=== PATIENT | male | born 1975 | race Caucasian/White ===

== ENCOUNTER 2024-11-24 00:21 | Emergency (ER) | payer BC ==
[2024-11-24 01:01] LABS: Specific Gravity 1.024 (1.005-1.030); Urine Bilirubin NEGATIVE (Negative); Urine Blood Negative (Negative); Urine Clarity Clear (Clear); Urine Color Light-Yellow (Yellow); Urine Glucose NEGATIVE (Negative); Urine Ketones NEGATIVE (Negative); Urine Microscopic Reflex YN NO UMIC; Urine Nitrite NEGATIVE (Negative); Urine Protein NEGATIVE (Negative); Urine Urobilinogen Normal (Normal); Urine pH 6.5 (5.0-7.0)
[2024-11-24 01:44] LABS: Absolute Eosinophils 0.1 K/uL (0-0.5); Absolute Lymphocytes (CBC) 2.4 K/uL (0.7-4.9); Absolute Monocytes 0.5 K/uL (0.1-1.3); Absolute Neutrophil 3.7 K/uL (1.8-8.0); Basophils % 0.6 % (0-1.3); Eosinophils % 2.1 % (0-4.4); Hematocrit 46.3 % (39.6-49.0); Hemoglobin 16.4 g/dL (13.6-17.9); MCH 30.4 pg (27.0-35.0); MCHC 35.3 g/dL (32.0-36.0); MCV 86.1 fL (80-100); MPV 9.4 fL (7.6-11.3); Monocytes % 7.4 % (3.3-12.3); Neutrophils % 54.9 % (41.7-73.7); Nucleated Red Blood Cells % 0.3 % (0-0); Platelets 166 thou/uL (152-406); RBC Red Blood Cell Count 5.37 M/uL (4.33-5.43); Red Cell Distribution Width 14.6 % (12.1-15.2)
[2024-11-24 01:57] LABS: Albumin 3.7 g/dL (3.4-5.0); Albumin/Globulin Ratio 1.2 (1.1-1.8); Anion Gap 5.9 mEq/L (5.0-15.0); Bilirubin Total 0.4 mg/dL (0.2-1.0); Globulin 3.2 g/dL (2.3-3.5); Potassium 3.9 mEq/L (3.5-5.1); Protein, Total 6.9 g/dL (6.4-8.2)
--- NOTE | 2024-11-24 04:07 | EDPHYS ---
Physician Documentation [facility] Name: Tristan Ramesh Age: 49 yrs Sex: Male : 1975 Arrival Date: 11/24/2024 Time: 00:21 Bed 11 Private MD: ED Physician Nicholas Bullock HPI: 11/24 00:26 This 49 yrs old Male presents to ER via Unassigned with complaints of Testicular Pain. kb 00:26 Pt is a 49 year old male who presents for left testicular pain that started around 1100 kb this morning. Denies fever, redness, swelling, urinary symptoms. Reports he did have left low back pain yesterday that radiates around to the left abd. States he injured his back when he lifted something. Historical: - Allergies: 00:54 No Known Allergies; vc1 - Home Meds: 00:54 None [Active]; vc1 - PMHx: 00:54 None; vc1 - PSHx: 00:54 None; vc1 - Immunization history:: Client reports receiving the 2nd dose of the Covid vaccine. - Infectious Disease History:: Denies. - Social history:: Smoking status: Patient denies any tobacco usage or history of. ROS: 00:26 Constitutional: As per HPI kb Exam: 00:26 Constitutional: This is a well developed, well nourished patient who is awake, alert, kb and in no acute distress. Head/Face: Normocephalic, atraumatic. ENT: Moist Mucous membranes Cardiovascular: Regular rate Respiratory: Respirations even and unlabored. No increased work of breathing. Talking in full sentences Abdomen/GI: Soft, non-tender. No distention Back: No spinal tenderness. No costovertebral tenderness. Full range of motion. Skin: Warm, dry with normal turgor. Normal color. MS/ Extremity: Pulses equal, no cyanosis. Neurovascular intact. Full, normal range of motion. Neuro: Awake and alert, GCS 15, oriented to person, place, time, and situation. 00:32 : Male external genitalia: tenderness, of the left testicle is noted, that is kb moderate, Vital Signs: 00:52 BP 132 / 89; Pulse 82; Resp 16; Temp 98.4; Pulse Ox 100% ; Weight 74.84 kg; Height 5 vc1 ft. 8 in. ; Pain /10; 04:33 BP 126 / 84; Pulse 80; Resp 16; Pulse Ox 100% ; vc1 00:52 Body Mass Index 25.09 (74.84 kg, 172.72 cm) vc1 00:52 Pain Scale: Adult vc1 MDM: 00:24 Medical Screening Exam initiated kb 00:31 Data reviewed: vital signs, nurses notes. kb 00:54 Transition of care: After a detail discussion of the patient's case, care is kb transferred to Nicholas Bullock MD. 03:50 ED course: EXAM DESCRIPTION: Scrotum Testicles CLINICAL HISTORY: 49 years Male, sp4 testicular pain COMPARISON: None. TECHNIQUE: Real-time sonographic images of the scrotal contents obtained using a linear multi hertz transducer. Color and spectral Doppler imaging was also obtained. FINDINGS: Testicles: The right testicle measures 5.3 x 2.7 x 3.1 cm. The left testicle measures 4.8 x 2.9 x 2.8 cm. No solid intratesticular mass identified. Homogenous echogenicity of the testicles. Epididymis:Right epididymal cyst measuring 6 mm. Hydrocele:Trace bilateral hydroceles. Blood flow:Blood flow identified bilaterally. Other:No additional findings. IMPRESSION: 1. Blood flow identified in the testicles bilaterally. 2. Trace bilateral hydroceles.. ED course: FINDINGS: Lung Bases: Minimal dependent atelectasis. Bones: No acute osseous abnormality identified. Abdomen: Liver: The liver has normal size and density. Small hypodensity in the right hepatic lobe may represent a cyst. Gallbladder: Prior cholecystectomy. Spleen, Pancreas, and Adrenal Glands: Splenomegaly. The pancreas and adrenal glands are unremarkable. Kidneys: No hydronephrosis or obstructing ureteral calculi. Vasculature: Aortoiliac atherosclerosis. IVC is unremarkable. Stomach: The stomach and duodenum have normal course. Other: No free intraperitoneal air. Scattered mildly prominent mesenteric lymph nodes. Pelvis: Bladder: Mild wall thickening of the urinary bladder. Bowel: No dilated loops of large or small bowel. Mild wall thickening of the proximal small bowel. Appendix: Normal appendix. Pelvis:Prostate is not enlarged. IMPRESSION: 1. Mild wall thickening of the proximal small bowel. These findings could be seen with nonspecific enteritis. 2. Mild wall thickening of the urinary bladder. This could be seen with cystitis. 3. Splenomegaly. Electronically signed by: Candido Chapman DO 11/24/2024 03:13 AM. 11/24 00:30 Order name: CBC with Diff; Complete Time: 02:34 kb 11/24 00:30 Order name: CMP; Complete Time: 02:34 kb 11/24 00:30 Order name: Lipase; Complete Time: 02:34 kb 11/24 00:30 Order name: Urinalysis w/ reflexes; Complete Time: 02:34 kb 11/24 00:30 Order name: CT Stone Protocol kb 11/24 00:30 Order name: US Scrotum Testicles kb 11/24 00:30 Order name: IV Saline Lock; Complete Time: 00:43 kb 11/24 00:30 Order name: Labs collected and sent; Complete Time: 00:43 kb Administered Medications: 04:29 Drug: Acetaminophen PO 1000 mg PO once Route: PO; vc1 04:33 Follow up: Response: Medication administered at discharge. vc1 04:29 Drug: MetoCLOPramide PO 10 mg PO once Route: PO; vc1 04:33 Follow up: Response: Medication administered at discharge. vc1 04:29 Drug: Methocarbamol PO 750 mg PO once Route: PO; vc1 04:33 Follow up: Response: Medication administered at discharge. vc1 04:30 Drug: Ketorolac PO 10 mg PO once Route: PO; vc1 04:32 Follow up: Response: Medication administered at discharge. vc1 Disposition: 04:04 Co-signature as Attending Physician, Nicholas Bullock MD I agree with the assessment sp4 and plan of care. I reviewed the patient's care provided by Advanced Practice Provider \T\ agree w/ the diagnosis \T\ care plan. I personally saw the pt \T\ performed a substantive portion of the visit, incldng all aspects of the (History/Exam/Medical Decision Making). Disposition Summary: 11/24/24 04:06 Discharge Ordered Notes: Location: Home sp4 Problem: new sp4 Symptoms: have improved sp4 Condition: Stable sp4 Diagnosis - Acute left testicular pain, acute enteritis, acute left lower abdominal pain sp4 Followup: sp4 - With: Ken Tucker MD - When: 7 - 10 days - Reason: Recheck today's complaints Discharge Instructions: - Discharge Summary Sheet sp4 - Testicular Self-Exam, [id number] sp4 Forms: - Medication Reconciliation Form vc1 - Patient Portal Instructions sp4 Prescriptions: - ketorolac 10 mg Oral tablet - take 1 tablet ORAL route every 8 hours PRN pain; 30 tablet; Refills: 0, Product sp4 Selection Permitted - Tramadol 50 mg Oral tablet - take 1 tablet ORAL route every 8 hours PRN pain; 30 tablet; Refills: 0, Product sp4 Selection Permitted Signatures: Dispatcher [employer] EDMS Lina Gudino, Keiko Hurley RN RN vc1 Nicholas Bullock MD MD sp4 Corrections: (The following items were deleted from the chart) 00:31 00:31 Stone Protocol+CT.RAD.BRZ ordered. EDMS EDMS 00:31 00:31 Scrotum Testicles+US.RAD.BRZ ordered. EDMS EDMS
--- NOTE | 2024-11-24 04:07 | ER ---
Nurse's Notes [facility] Name: Tristan Ramesh Age: 49 yrs Sex: Male : 1975 Arrival Date: 11/24/2024 Time: 00:21 Bed 11 Private MD: Diagnosis: Acute left testicular pain, acute enteritis, acute left lower abdominal pain Presentation: 11/24 00:52 Chief complaint: Patient states: pain in scrotum that started around 11 am. Coronavirus vc1 screen: Client denies travel out of the [place] in the last 14 days. At this time, the client does not indicate any symptoms associated with coronavirus-19. Ebola Screen: Patient negative for fever greater than or equal to 101.5 degrees Fahrenheit, and additional compatible Ebola Virus Disease symptoms Patient denies exposure to infectious person. Patient denies travel to an Ebola-affected area in the 21 days before illness onset. No symptoms or risks identified at this time. Initial Sepsis Screen: Does the patient meet any 2 criteria? No. Patient's initial sepsis screen is negative. Does the patient have a suspected source of infection? No. Patient's initial sepsis screen is negative. Risk Assessment: Do you want to hurt yourself or someone else? Patient reports no desire to harm self or others. Onset of symptoms was November 23, 2024 at 11:00. 00:52 Method Of Arrival: Ambulatory vc1 00:52 Acuity: MIRA 3 vc1 Triage Assessment: 00:56 General: Appears in no apparent distress. uncomfortable, slender, well groomed, well vc1 developed, well nourished, Behavior is calm, cooperative, appropriate for age. Pain: Complains of pain in left testicle Pain does not radiate. Pain currently is 1 out of 10 on a pain scale. at worst was 7 out of 10 on a pain scale. Aggravated by repositioning, Also complains of no other associated symptoms. EENT: No deficits noted. No signs and/or symptoms were reported regarding the EENT system. Neuro: Level of Consciousness is awake, alert, obeys commands, Oriented to person, place, time, situation, Appropriate for age. Cardiovascular: Heart tones S1 S2 present Capillary refill < 3 seconds Patient's skin is warm and dry. Respiratory: Airway is patent Respiratory effort is even, unlabored, Respiratory pattern is regular, symmetrical, Breath sounds are clear bilaterally. GI: No deficits noted. No signs and/or symptoms were reported involving the gastrointestinal system. : No deficits noted. No signs and/or symptoms were reported regarding the genitourinary system. Derm: Skin is intact, is healthy with good turgor, Skin is dry, Skin is normal, Skin temperature is warm. Musculoskeletal: Circulation, motion, and sensation intact. Range of motion: intact in all extremities, Reports pain in left testicle. Historical: - Allergies: 00:54 No Known Allergies; vc1 - Home Meds: 00:54 None [Active]; vc1 - PMHx: 00:54 None; vc1 - PSHx: 00:54 None; vc1 - Immunization history:: Client reports receiving the 2nd dose of the Covid vaccine. - Infectious Disease History:: Denies. - Social history:: Smoking status: Patient denies any tobacco usage or history of. Screenin:55 [facility] ED Fall Risk Assessment (Adult) History of falling in the last 3 months, vc1 including since admission No falls in past 3 months (0 pts) Confusion or Disorientation No (0 pts) Intoxicated or Sedated No (0 pts) Impaired Gait No (0 pts) Mobility Assist Device Used No (0 pt) Altered Elimination No (0 pt) Score/Fall Risk Level 0 - 2 = Low Risk Oriented to surroundings, Maintained a safe environment, Educated pt \T\ family on fall prevention, incl call for assistance when getting out of bed, Hourly rounding (assess needs \T\ fall precautionary measures) done. Abuse screen: Denies threats or abuse. Nutritional screening: No deficits noted. Tuberculosis screening: No symptoms or risk factors identified. Assessment: 04:34 Reassessment: Patient appears in no apparent distress at this time. Patient and/or vc1 family updated on plan of care and expected duration. Pain level reassessed. Patient is alert, oriented x 3, equal unlabored respirations, skin warm/dry/pink. Patient states feeling better. Vital Signs: 00:52 BP 132 / 89; Pulse 82; Resp 16; Temp 98.4; Pulse Ox 100% ; Weight 74.84 kg; Height 5 vc1 ft. 8 in. ; Pain 1/10; 04:33 BP 126 / 84; Pulse 80; Resp 16; Pulse Ox 100% ; vc1 00:52 Body Mass Index 25.09 (74.84 kg, 172.72 cm) vc1 00:52 Pain Scale: Adult vc1 ED Course: 00:24 Patient arrived in ED. im 00:24 Lina Gudino FNP-C is PHCP. kb 00:24 Nicholas Bullock MD is Attending Physician. kb 00:42 Keiko Fajardo, HERMELINDO is Primary Nurse. vc1 00:43 CBC with Diff Sent. vc1 00:43 CMP Sent. vc1 00:43 Lipase Sent. vc1 00:43 Urinalysis w/ reflexes Sent. vc1 00:43 Inserted saline lock: 20 gauge in right antecubital area, using aseptic technique. vc1 Blood collected. Flushed with 10 mL NS. 00:54 Triage completed. vc1 00:54 Arm band placed on right wrist. vc1 00:55 Patient has correct armband on for positive identification. Bed in low position. Call vc1 light in reach. Provided Education on: plan of care, wait time for ultrasound. Pulse ox on. NIBP on. 01:00 CT Stone Protocol In Process Unspecified. EDMS 01:55 US Scrotum Testicles In Process Unspecified. EDMS 04:05 Ken Tucker MD is Referral Physician. sp4 04:34 No provider procedures requiring assistance completed. IV discontinued, intact, vc1 bleeding controlled, No redness/swelling at site. Pressure dressing applied. Administered Medications: 04:29 Drug: Acetaminophen PO 1000 mg PO once Route: PO; vc1 04:33 Follow up: Response: Medication administered at discharge. vc1 04:29 Drug: MetoCLOPramide PO 10 mg PO once Route: PO; vc1 04:33 Follow up: Response: Medication administered at discharge. vc1 04:29 Drug: Methocarbamol PO 750 mg PO once Route: PO; vc1 04:33 Follow up: Response: Medication administered at discharge. vc1 04:30 Drug: Ketorolac PO 10 mg PO once Route: PO; vc1 04:32 Follow up: Response: Medication administered at discharge. vc1 Medication: 00:58 VIS not applicable for this client. vc1 Outcome: 04:06 Discharge ordered by . sp4 04:34 Discharged to home ambulatory, vc1 04:34 Condition: good 04:34 Discharge instructions given to patient, Instructed on discharge instructions, follow up and referral plans. medication usage, Demonstrated understanding of instructions, follow-up care, medications, Prescriptions given X 2, 04:34 Patient left the ED. vc1 Signatures: Dispatcher [employer] EDMS Lina Gudino, MARTINA-C METAL SHAPING MACHINE OPERATOR-Keiko Yip RN RN vc1 Nicholas Bulolck MD MD sp4 Tika Crawford
[2024-11-24] MEDS ORDERED: KETOROLAC 10 MG TAB ONE (04:22)
[2024-11-24] MEDS ORDERED: ACETAMINOPHEN 500 MG TAB ONE (04:23)
[2024-11-24] MEDS ORDERED: METOCLOPRAMIDE 5 MG TAB ONE (04:23)
[2024-11-24] MEDS ORDERED: methocarbamoL 750 MG TAB ONE (04:23)
[2024-11-24 05:10] VITALS: TEMP 98.4; O2SAT 100
[2024-11-24 05:16] VITALS: BP 126/84
--- NOTE | 2024-11-24 06:09 | RAD REPORT ---
EXAM DESCRIPTION: CT ABDOMEN AND PELVIS WITHOUT CONTRAST CLINICAL HISTORY: FLANK PAIN COMPARISON: None Available. TECHNIQUE: CT of the abdomen and pelvis without IV contrast. Evaluation of the solid organs and vascu lature is suboptimal due to lack of IV contrast. This exam was performed according to our departmental dose-optimization program, which includes automated exposure control, adjustment of the mA and/or kV according to patient size and/or use of iterative reconstruction technique. FINDINGS: Lung Bases: Minimal dependent atelectasis. Bones: No acute osseous abnormality identified. Abdomen: Liver: The liver has normal size and density. Small hypodensity in the right hepatic lobe may represe nt a cyst. Gallbladder: Prior cholecystectomy. Spleen, Pancreas, and Adrenal Glands: Splenomegaly. The pancreas and adrenal glands are unremarkabl e. Kidneys: No hydronephrosis or obstructing ureteral calculi. Vasculature: Aortoiliac atherosclerosis. IVC is unremarkable. Stomach: The stomach and duodenum have normal course. Other: No free intraperitoneal air. Scattered mildly prominent mesenteric lymph nodes. Pelvis: Bladder: Mild wall thickening of the urinary bladder. Bowel: No dilated loops of large or small bowel. Mild wall thickening of the proximal small bowel. Appendix: Normal appendix. Pelvis: Prostate is not enlarged. IMPRESSION: 1. Mild wall thickening of the proximal small bowel. These findings could be seen with nonspecific enteritis. 2. Mild wall thickening of the urinary bladder. This could be seen with cystitis. 3. Splenomegaly. Electronically signed by: Candido Chapman DO 11/24/2024 03:13 AM [facility] 4[facility] Due to temporary technical issues with the PACS/[employer] reporting system, reports are being alyson d by the in-house radiologist without review as a courtesy to ensure prompt reporting the interpreting radiologist is fully responsible for the content of the report. Transcribed Date/Time: 11/24/2024 6:09 AM
--- NOTE | 2024-11-24 07:01 | RAD REPORT ---
EXAM DESCRIPTION: Scrotum Testicles CLINICAL HISTORY: 49 years Male, testicular pain COMPARISON: None. TECHNIQUE: Real-time sonographic images of the scrotal contents obtained using a linear multi hertz t ransducer. Color and spectral Doppler imaging was also obtained. FINDINGS: Testicles: The right testicle measures 5.3 x 2.7 x 3.1 cm. The left testicle measures 4.8 x 2.9 x 2.8 cm. No solid intratesticular mass identified. Homogenous echogenicity of the testicles. Epididymis: Right epididymal cyst measuring 6 mm. Hydrocele: Trace bilateral hydroceles. Blood flow: Blood flow identified bilaterally. Other: No additional findings. IMPRESSION: 1. Blood flow identified in the testicles bilaterally. 2. Trace bilateral hydroceles. Electronically signed by: Candido Chapman DO 11/24/2024 03:15 AM CDT 4ZDM Due to temporary technical issues with the PACS/[employer] reporting system, reports are being alyson d by the in-house radiologist without review as a courtesy to ensure prompt reporting the interpreting radiologist is fully responsible for the content of the report. Transcribed Date/Time: 11/24/2024 7:00 AM
== END 2024-11-24 04:34 | disposition home or self-care (01) ==
LOC: ER 00:21
DX: N50.812 Left testicular pain (principal); K52.9 Noninfective gastroenteritis and colitis, unspecified; R10.32 Left lower quadrant pain
CPT/HCPCS: 36415; 74176; 76377; 76870; 80053; 81003; 83690; 85025; 99284